=== PATIENT | female | born 1970 | race Hispanic/Latino ===

== ENCOUNTER 2017-11-01 19:44 | Emergency (ER) | payer SELFPAY ==
[2017-11-01 21:19] LABS: #Basophils 0.1 thou/uL (0.0-0.2); #Eosinphils 0.3 thou/uL (0.0-0.7); #Lymphocytes 3.1 thou/uL (1.20-3.40); #Monocytes 0.6 thou/uL (0.11-0.59); #Neutrophils 3.5 thou/uL (1.40-6.50); %Basophils 1.2 % (0.0-1.0); %Eosinophils 4.4 % (0.0-10.0); %Lymphocytes 40.3 % (21.0-51.0); %Monocytes 7.8 % (0.0-10.0); %Neutrophils 46.3 % (42.0-75.0); Hemoglobin 10.1 g/dL (12.0-16.0); Mean Corpuscular HGB CONC 32.4 g/dL (32.0-36.0); Mean Corpuscular Hemoglobin 23.5 pg (27.0-31.0); Mean Corpuscular Volume 72.5 fL (78.0-98.0); Mean Platelet Volume 7.5 fL (7.4-10.4); Platelet Count 361 thou/uL (130-400); RBC Distribution Width 17.2 % (11.5-14.5); Red Blood Cell (RBC) Count 4.32 mill/uL (4.20-5.40); White Blood Cell (WBC) Count 7.6 thou/uL (4.8-10.8)
[2017-11-01 21:37] LABS: BHCG - Serum Negative (NEGATIVE); Pregs Control Background? CLEAR/WHITE (CLR/WHITE); Pregs Control Bar Appear? YES (CONTROL BAR)
[2017-11-01] MEDS ORDERED: traMADol HCl 50 MG TAB ONE (22:12)
--- NOTE | 2017-11-01 23:18 | ULT ---
PELVIC ULTRASOUND: 11/01/17 HISTORY: Abdominal mass. vaginal bleeding x1 month. Real time images of the pelvis were obtained transabdominally. There show an enlarged uterus which is very heterogeneous in appearance with multiple fibroids. The uterus measures 10.7 x 16.1 x 19.5 cm i n size. IN the lower endometrium or cervix region is a slightly oblong shaped mass-like area measurin g approximately 3.5 x 5 cm. This could represent a fibroid or could just represent blood within the e ndometrium. The right and left adnexa are difficult to visualize but appear unremarkable. DOPPLER EVALUATION WITH SPECTRAL ANALYSIS: Normal low is shown to the adnexa. IMPRESSION: Enlarged uterus with multiple fibroids. POS: [facility]
[2017-11-01 23:50] LABS: Bilirubin Negative (Negative); Blood, Urine Moderate (Negative); Clarity CLEAR (Clear); Glucose, Urine (Dipstick) Negative (Negative); Leukocyte Negative (Negative); Nitrite Negative (Negative); Protein, Urine (Dipstick) Negative (Neg-Trace); Specific Gravity, Urine 1.007 (1.002-1.036); Urobilinogen 0.2 mg/dL (0.2-1.0)
[2017-11-01 23:52] LABS: Bacteria/HPF None Seen HPF (None Seen); Hyaline Casts/LPF 0-3 HYALINE CAST LPF (0-3 Hyaline); RBC/HPF 0-3 HPF (0-3); Squamous Epithelial 0-3 HPF (0-3); WBC/HPF None Seen HPF (0-3)
[2017-11-02] MEDS ORDERED: Estrogens, Conjugated 25 mg Vial IM SCH (00:15)
[2017-11-04 22:39] LABS: Chlamydia by PCR Not Detected (NotDetected); GC by PCR Not Detected (NotDetected)
== END 2017-11-02 01:05 | disposition home or self-care (01) ==
LOC: ERS 19:44
DX: D25.9 Leiomyoma of uterus, unspecified (principal); N76.0 Acute vaginitis; B96.89 Other specified bacterial agents as the cause of diseases classified elsewhere; N93.8 Other specified abnormal uterine and vaginal bleeding
CPT/HCPCS: 36415; 76856; 81003; 81015; 84703; 85025; 87480; 87491; 87510; 87591; 87660; 96372; J1410